=== PATIENT | female | born 1980 | race Caucasian/White ===

== ENCOUNTER 2021-08-08 13:31 | Outpatient (REF) | payer OTHER, SELFPAY ==
[2021-08-08 15:29] LABS: COVID-19 Test Negative (Negative)
== END 2021-08-08 13:32 | disposition home or self-care (01) ==
LOC: HO.LAB 13:31
PROVIDERS: Visit Provider Internal Medicine
DX: Z20.822 Contact with and (suspected) exposure to COVID-19 (principal)
CPT/HCPCS: 36415; 87635; C9803

== ENCOUNTER 2022-02-25 10:04 | Outpatient (REF) | payer OTHER, SELFPAY ==
--- NOTE | ~2022-02-25 | XR_ITS ---
EXAMINATION: XR KNEE, LEFT CLINICAL INFORMATION: Left knee contusion. COMPARISON: None. TECHNIQUE: 3 views of the left knee. FINDINGS: Moderate lateral compartment joint space narrowing with marginal osteophytes. No osseous erosion. No fracture or dislocation. Trace joint effusion. XR/XR knee LT 3V IMPRESSION: Moderate lateral compartment osteoarthritis and trace joint effusion.
== END 2022-02-25 10:05 | disposition home or self-care (01) ==
LOC: HO.XRAY 10:04
PROVIDERS: PCP Internal Medicine; Visit Provider Student in an Organized Health Care Education/Training Program
DX: S80.02XA Contusion of left knee, initial encounter (principal)
CPT/HCPCS: 73562

== ENCOUNTER 2025-05-29 18:41 | Emergency (ER) | payer OTHER, SELFPAY ==
--- NOTE | ~2025-05-29 | XR_ITS ---
CLINICAL HISTORY: injury right foot 5th toe 3 view right foot Comparison: None provided Findings: Obliquely oriented fracture along the distal shaft/neck of the 5th proximal phalanx with medial angulation. Regional soft tissue swelling. No significant arthritic change or erosions. No radiopaque foreign body. IMPRESSION: 5th proximal phalangeal fracture. This document has been electronically signed by: Joshua Long MD on 05/29/2025 19:22:19
--- NOTE | ~2025-05-29 | XR_ITS ---
CLINICAL HISTORY: post reduction of fx 3 view right foot Comparison: CR - XR FOOT RT 2V - 05/29/25 18:59 EDT Findings: Study performed at 2148 hours. Postreduction radiographs were obtained. There is a splint over the plantar aspect of the 5th toe. Previously identified fracture of the proximal phalanx of the 5th toe is again seen. Alignment is improved with decreased impaction, decreased lateral displacement, decreased lateral angulation of the distal fracture fragment. IMPRESSION: Postreduction radiographs as above. This document has been electronically signed by: Bravo Dodd MD on 05/29/2025 22:06:30
[2025-05-29 18:43] VITALS: BP 192/98; PULSE 86; RESP 15; TEMP 36.4; O2SAT 96; BMI 26.1
--- NOTE | 2025-05-29 18:43 | ED.LOWEXIN ---
HPI - Extremity Injury (Lower) General Chief Complaint: Extremity Injury, Lower Stated Complaint: right toe inj Time Seen by Provider: 05/29/25 20:02 Source: patient Limitations: no limitations History of Present Illness ED Provider: Karen Otero PA-C HPI Narrative: 44-year-old female with a history of hypertension presents with right foot pain. Patient states she stubbed her 5th right toe earlier today, it is now deformed. Associated subtle swelling and ecchymosis. Related Data Allergies Allergy/AdvReac Type Severity Reaction Status Date / Time No Known Allergies (No Known Allergy Verified 05/29/25 18:45 Allergies*) Review of Systems Review of Systems: Yes all other systems are reviewed and are negative Constitutional: Constitutional: Denies fatigue and Denies fever(s) Musculoskeletal: Musculoskeletal: Reports arthralgias and Reports joint swelling Endocrine: Endocrine: Denies fatigue PMFSH Past Medical History Attestation statement: The following information was validated with the patient. Social History Social History Smoked in Last 30 Days: No Use of substances other than those prescribed or required for medical reasons: No Advance Directives: No Advance Directives Information Provided: Yes Do you have a plan to hurt others: No Plan Physical Exam Vital Signs: Vital Signs: Last Vital Signs Temp 97.6 F 05/29/25 18:43 Pulse 86 05/29/25 18:43 Resp 15 05/29/25 18:43 BP 192/98 H 05/29/25 18:43 Pulse Ox 96 05/29/25 18:43 O2 Del Method Room Air 05/29/25 18:43 BMI result Body Mass Index 26.1 Const: Other: Alert well-appearing Orientation/consciousness: patient oriented x3 Resp: Effort & Inspection: normal respiratory effort Cardio: Other: Normal peripheral perfusion Skin: Other: Warm dry no rash Neuro: General: patient oriented x3, gait normal, no focal motor deficits and CN's II-XI intact bilaterally Extrem: Other: The right 5th digit is deviated laterally subtle swelling overlying ecchymosis over the dorsum of the right foot sensation intact Psych: Other: Cooperative Course Course Course Narrative: Shivani Rodriguezlouis [employer]MENT [employer]IC 05/29 391 This is a rapid medical exam. Deferred additional HPI, ROS, PE to primary provider. 44 yo female with history of HTN here with right foot 5th toe pain after hitting it on the garbage can. Will obtain x-rays VSS Medical Decision Making Medical Decision Making MDM Narrative: 44-year-old female with a history of hypertension presents with right foot pain. Patient states she stubbed her 5th right toe earlier today, it is now deformed. Associated subtle swelling and ecchymosis. No relevant chronic issues History: Per patient I have considered the following differential diagnoses: Fracture, dislocation, contusion, sprain Plan: X-ray ordered from triage, the patient has a fracture that requires reduction. We will give hematoma block, apply traction reduce, she will be placed in a boot with crutches, we will give her follow up with Podiatry and ortho. She states she is not in any significant discomfort, she declines analgesia. I have independently reviewed the following tests: X-ray right foot: Findings: Obliquely oriented fracture along the distal shaft/neck of the 5th proximal phalanx with medial angulation. Regional soft tissue swelling. No significant arthritic change or erosions. No radiopaque foreign body. IMPRESSION: 5th proximal phalangeal fracture. Postreduction film: Differential Diagnosis Differential Diagnoses: The differential diagnosis associated with the presentation includes See medical decision-making Admission/Observation Consideration of admission/observation: Escalation of care including admission/observation considered Not applicable Radiology Impression Discussion of test interpretation with radiology: I have reviewed the radiologist's reading. Procedures Orthopedic Fracture Reduction Fracture #1: Time Out Performed: No Side: right Fracture Reduction Location: toe Analgesia: hematoma block Technique: traction/counter-traction Post Reduction X-rays Demonstrate: acceptable reduction Post-reduction neuro exam: intact Post-reduction vascular exam: intact Splint Applied: Yes Patient Tolerated Procedure: well Discharge Plan Discharge Clinical Impression: Closed fracture of fifth toe of right foot Patient Disposition: Home, Self-Care Instructions: Foot Fracture in Adults (ED), P.R.I.C.E. Treatment (ED), Closed Reduction Internal Fixation of Leg Fracture in Adults (DC), Walking Boot (ED) Additional Instructions: You sustained a fracture of the right 5th toe. See home care instructions. I have provided you with a contact for the orthopedic service and for Podiatry, you should contact both services, follow up with whomever you can see the soonest. You can use yqim-luk-czrzoqv ibuprofen 600 mg taken every 6 hours with food, alternated with qovt-wac-wsjhetj Tylenol 1000 mg taken every 8 hours, for your pain. Referrals: Jyoti Ferguson DPM [Physician, Podiatry] Referral Note: R. 5th proximal phalange fracture Chucho Gordillo MD [Physician, Orthopedics] Referral Note: R. proximal phalange fracture Stand Alone Forms: Work/School Release Print Language: Nepali
--- OUTSIDE RECORDS SUMMARY | 2025-05-29 19:53 | XMS_ITS | Clinical Summary ---
Author Organization [facility] Address [address] [place] [address] Care Team Providers Care Neurology Stroke Physician Name Role Phone Yoel Schreiber Primary Care Provider [phone] Allergies No known active allergies Medications Lisinopril (PRINIVIL,ZESTR IL) 40 MG tablet TAKE 1 TABLET BY MOUTH DAILY EVERY DAY 02/23/2022 Active Omeprazole (PriLOSEC) [address] capsule Take by mouth 1 (one) time each day 04/13/2022 Active Sertraline HCl (ZOLOFT) 25 MG tablet Take 25 mg by mouth 1 (one) time each day in the morning 04/13/2022 Active predniSONE (DELTASONE) 2.5 MG tablet TAKE 2 TABLETS BY MOUTH IN THE MORNING + TAKE 1 TABLET IN THE EVENING 02/23/2022 Active Eplerenone (INSPRA) 50 MG tablet Take 50 mg by mouth 1 (one) time each day 02/23/2022 Active Active Problems Problem Noted Date Diagnosed Date Gastroesophageal reflux disease without esophagi tis 05/02/2022 Disorder of adrenal gland ([facility]) 05/02/2022 Essential hypertension 05/02/2022 Postartificial menopausal syndrome 05/02/2022 Social History Tobacco Use Types Packs/Day Years Used Date Smoking Tobacco: Never Assessed Comments Unknown Sex and Gender Information Value Date Recorded Sex Assigned at Not on file Legal Sex Female 11:07 AM EDT Gender Identity Not on file Sexual Orientation Not on file Last Filed Vital Signs Vital Sign Reading Time Taken Comments Blood Pressure 109/67 05/02/2022 11:12 AM EDT Pulse 74 05/02/2022 11:12 AM EDT Temperature 36.4 C (97.6 F) 05/02/2022 11:12 AM EDT Respiratory Rate - - Oxygen Saturation 98% 05/02/2022 11:12 AM EDT Inhaled Oxygen Concentration - - Weight - - Height - - Body Mass Index - - Plan of Treatment Health Maintenance Due Date Last Done Comments Hepatitis C Screening 1980 Pap Smear 1996 DTaP/Tdap/Td (1 - Tdap) 1998 Hep B (1 of 3 - 19+ 3-dose series) 1999 Mammogram/Breast Imaging 2020 COVID-19 Vaccine ( - 2023-2 5 season) 2025 Influenza (#1) 2025 Zoster (Shingrix) (1 of 2) 2030 HPV Vaccine (No Doses Required) Completed Hep A Aged Out No longer eligi ble based on patient's age to complete this topic Hib Aged Out No longer eligi ble based on patient's age to complete this topic Meningococcal ACWY Aged Out No longer eligible based on patient's age to complete this topic Pneumococcal Aged Out No longer eligi ble based on patient's age to complete this topic Care Teams Neurology Stroke Physician Relationship Specialty Start Date End Date Yoel Schreiber [address] [place] [id number] PCP - General Internal Medicine 05/02/22
--- OUTSIDE RECORDS SUMMARY | 2025-05-29 19:54 | XMS_ITS | Patient Health Record ---
Author Organization [facility] Address [address] [address] Care Team Providers Care Financial Aids Officer Name Role Phone Abdoul SORIA, Yoel Primary Care Provider Malinda Garcia [phone] Reason For Referral No Information Medications Medication SIG (Take, Route, Frequency, Duration) Notes Start Date End Date Status predniSONE 25MG 1 ORAL twice daily; Duration: -3 [facility]- 12/21/2012 Active Omeprazole 20MG 1 ORAL daily; Durati on: -3 [facility]- 12/21/2012 Active Lisinopril 40MG 1 ORAL daily; Durati on: -3 [facility]- 12/21/2012 Active hydroCHLOROthiazide 12.5MG 1 ORAL daily; Duration: -3 [facility]- 12/21/2012 Active Ronda 0.1 MG/24HR 1 patch to skin Transdermal twice weekly; Duration: 365 days 07/04/2015 Active Verapamil HCl 100MG 1 ORAL daily; Durati on: -3 [facility]- 12/21/2012 Active Problems Problem Type SNOMED Code ICD Code Onset Dates Problem Status W/U Status Risk Notes Problem Disorder of adrenal gland (99616013) Other specified disorders of adrenal glands (255.8) Active confirmed Major Problem Essential hypertension (02847096) Unspecified essential hypertension (401.9) Active confirmed Major Problem Esophageal reflux (067845002) Esophageal reflux (530.81) Active confirmed Major Problem Postartificial menopausal syndrome (09331863) Symptomatic states associated with artificial menopause (627.4) Active confirmed Plan Of Treatment Pending Test Test Name Order Date Bone Density 03/06/2015 Insurance Providers Payer Name Payer Address Payer Phone Subscriber Number Group Number Insured Name Patient Relationship to Insured Coverage Start Date Coverage End Date [employer] [address] [place] [address] [id number] KATHARINE PYLE Self - patient is the insured Medical (General) History Medical History History ICD Code Other specified disorders of adrenal glands (Congenital adrenal hyperplasia per PCP records) Esophageal reflux Unspecified essential hypertension Symptomatic states associated with artif icial menopause Essential hypertension, benign Surgical History Surgery Date(Month/Year) LAV BSO for ?muellerian duct abnormalit y age 16 L tympanic membrane repair
--- OUTSIDE RECORDS SUMMARY | 2025-05-29 19:54 | XMS_ITS | Clinical Summary ---
Author Organization [facility] Address [address] [address] Phone Care Team Providers Care Head Porter Name Role Phone Unknown, Unknown MD Primary Care Provider Unavai lable Allergies No known active allergies Medications predniSONE (DELTASONE) 2.5 MG tablet TAKE 2 TABLETS BY MOUTH IN THE MORNING AND 1 TABLET BY MOUTH IN THE EVENING 01/17/2021 Active lisinopril (PRINIVIL,ZESTR IL) 40 MG tablet 03/01/2021 Active verapamiL (VERELAN PM) 100 mg 24 hr capsule 03/01/2021 Active omeprazole (PRILOSEC) 20 MG tablet Take 20 mg by mouth daily. Active eplerenone (INSPRA) 50 MG tablet Take 50 mg by mouth daily. Active Immunizations No known immunizations Social History Tobacco Use Types Packs/Day Years Used Date Smoking Tobacco: Every Day Cigarettes Smokeless Tobacco: Never Alcohol Use Standard Drinks/Week Comments Not Currently 0 (1 standard drink = 0.6 oz pur e alcohol) Education Answer Date Recorded Are you interested in more education? Not on oseas e 12/28/2022 Are you concerned about learning? Not on file 12/28/2022 No 12/28/2022 No 12/28/2022 Digital Access Answer Date Recorded No 01/26/2023 No 01/26/2023 No 01/26/2023 Reliable internet access at home? Not on file 01/26/2023 Device with a working camera? Not on file Comments Unknown Sex and Gender Information Value Date Recorded Sex Assigned at Not on file Legal Sex Female 2:05 PM EDT Gender Identity Not on file Sexual Orientation Not on file Last Filed Vital Signs Vital Sign Reading Time Taken Comments Blood Pressure 122/77 03/02/2021 2:24 PM EDT Pulse 70 03/02/2021 2:24 PM EDT Temperature 36.6 C (97.9 F) 03/02/2021 2:24 PM EDT Respiratory Rate 16 03/02/2021 2:24 PM EDT Oxygen Saturation 97% 03/02/2021 2:24 PM EDT Inhaled Oxygen Concentration - - Weight 89.5 kg (197 lb 6.4 oz) 03/02/2021 2:24 P M EDT Height 181.7 cm (5' 11.54 ) 03/02/2021 2:24 PM E DT Body Mass Index 27.12 03/02/2021 2:24 PM EDT Plan of Treatment Health Maintenance Due Date Last Done Comments Adult Td,Tdap Booster 1980 CREATININE LEVEL 1980 POTASSIUM LEVEL 1980 DEPRESSION SCREENING 1992 SMOKING Hx and SMOKELESS TOB ACCO SCREENING 1993 HEPATITIS C SCREENING 1998 HIV ONE-TIME SCREENING (18-6 5 YEARS) 1998 PNEUMOCOCCAL VACCINES (0-49 years) (1 of 2 - PCV) 1999 PAP SMEAR 2001 MAMMOGRAM 2020 INFLUENZA VACCINE (#1) 2025 COVID-19 VACCINE ( - 2023-2 5 season) 2025 HEPATITIS A VACCINES Aged Out No long er eligible based on patient's age to complete this topic HIB VACCINES Aged Out No longer eligi ble based on patient's age to complete this topic MENINGOCOCCAL VACCINES (ACWY) Aged Out No longer eligible based on patient's age to complete this topic MENINGOCOCCAL VACCINES (B) Aged Out N o longer eligible based on patient's age to complete this topic Medical Devices Not on file Insurance [facility] [employer] [facility] DIRECT PLANS DIRECT PLANS DIRECT PLANS DIRECT PLANS DIRECT PLANS DIRECT PLANS DIRECT [facility] [employer] [facility] DIRECT [employer] [facility] DIRECT Care Teams Head Porter Relationship Specialty Start Date End Date Unknown, Unknown, PCP - General 03/02/21 Additional Source Comments The information contained in this document represents components of the legal health record. It is not the complete legal health record.[facility]
[2025-05-29 22:37] VITALS: BP 162/86; PULSE 82; RESP 16; TEMP 36.4; O2SAT 97
== END 2025-05-29 22:38 | disposition home or self-care (01) ==
PROVIDERS: Emergency Provider Emergency Medicine Emergency Medical Services; PCP Internal Medicine
DX: S92.911A Unspecified fracture of right toe(s), initial encounter for closed fracture (principal); M79.671 Pain in right foot; I10 Essential (primary) hypertension; M79.89 Other specified soft tissue disorders; X58.XXXA Exposure to other specified factors, initial encounter; Y93.9 Activity, unspecified; Y92.9 Unspecified place or not applicable; Y99.9 Unspecified external cause status
CPT/HCPCS: 28515; 73630; 99283; 99284

== ENCOUNTER → 2025-05-29 18:44 | Outpatient (BNV) | payer OTHER, SELFPAY | PROVIDERS: PCP Internal Medicine; Visit Provider Radiology Diagnostic Radiology | DX: S92.511D Displaced fracture of proximal phalanx of right lesser toe(s), subsequent encounter for fracture with routine healing (principal); S92.511A Displaced fracture of proximal phalanx of right lesser toe(s), initial encounter for closed fracture | CPT/HCPCS: 73630 ==

== ENCOUNTER 2025-06-01 13:08 | Outpatient (AMB) | payer OTHER, SELFPAY ==
[2025-06-01 13:20] VITALS: BMI 23.7
--- NOTE | 2025-06-01 13:20 | A.OFFVIS_ITS ---
Vital Signs 06/01/25 13:20 Height 6 ft Weight 175 lb BMI 23.7 Intake Visit Reasons: broken rit foot toe Intake Note: Mariama is a 44 year old female who presents today as a new patient for an evaluation of her 5th toe fracture on her right foot. Patient was seen on 05/29/25at the ED where she was provided with a walking boot and crutches. She states the injury occurred after stubbing her toe in her kitchen. Patient reports she takes OTC ibuprofen as needed for her pain. Allergies No Known Allergies (No Known Allergies*) Allergy (Verified 06/01/25 13:21) HPI Comments Details: The patient is a 44-year-old female with a past medical history as seen below presenting with a right 5th toe dislocation and fracture, post reduction and splinting in the ED. The injury was sustained after she accidentally kicked a trash can in her kitchen on Friday. Since the time of injury/postreduction, she has been wearing a boot and using crutches and reports that it has helped minimize her pain. She experiences occasional numbness and tingling, reminiscent of pins and needles, primarily when the foot is elevated. Utilizing crutches has also alleviated her discomfort, and her pain is being managed adequately with jmfx-tyc-tnvzsvw medications such as Tylenol and ibuprofen. She demonstrates compliance in using the boot and crutches as instructed. She states she experiences intermittent pain to the right 5th toe upon pressure or movement to the toe and is alleviated upon rest. The patient is also on prescribed vitamin D supplementation due to previously recorded low levels, supporting optimal bone healing. She denies any new pedal injuries. She denies any other pedal concerns. She denies any current nausea, vomiting, fever, or chills. Patient was accompanied by her mother. [facility] Medical History (Updated 06/01/25 @ 14:19 by Tawny Wright DPM) Right foot pain Dislocation of fifth toe, right, closed Review of Systems Const Details: - Musculoskeletal: Reports mild pain in the toe, occasional numbness, and tingling when elevated. - Neurological: Denies constant numbness or tingling. All systems reviewed & are unremarkable except as noted in HPI and below Physical Exam Vital Signs: BMI result Body Mass Index 23.7 Extrem Other: Right lower extremity focused physical exam: Derm: No open lesions abrasions or wounds noted. No maceration noted no ecchymosis or discoloration noted. Mild edema noted to the lateral aspect of the right foot along the area of the 5th toe. No clinical signs of infection. Vascular: DP/PT pulses palpable. Capillary refill time less than 3 seconds. Temperature gradient warm to warm. No varicosities noted. Pedal hair present. Neuro: Protective sensation is grossly intact. MSK: Pain on palpation to the 5th toe. Limited range of motion of the 5th toe due to guarding from pain. Range of motion of the remaining forefoot within normal limits. Range of motion of the hindfoot and ankle within normal limits. No crepitus noted. No fluctuance noted. Antalgic gait noted. Patient is currently utilizing crutches. Office Procedures [facility] Podiatry Dressing Details of Procedure: Applied a jhoan splint and Tristen bandage to the right foot to the secure the 5th toe. 29[address] Strapping of foot/toe Procedure code (CPT) selection complete Results Reviewed Results Reviewed: Ordered Right foot three views weight-bearing x-rays to be performed prior to next visit. Podiatry read of Right foot x-rays (05/29/2025): Postreduction image noted with spiral fracture of the shaft of the proximal phalanx nondisplaced. Good alignm ent noted post reduction. Right foot x-rays (05/29/2025): Findings: Study performed at 2148 hours. Postreduction radiographs were obtained. There is a splint over the plantar aspect of the 5th toe. Previously identified fracture of the proximal phalanx of the 5th toe is again seen. Alignment is improved with decreased impaction, decreased lateral displacement, decreased lateral angulation of the distal fracture fragment. IMPRESSION: Postreduction radiographs as above. Assessment & Plan Assessment & Plan (1) Closed fracture of fifth toe of right foot: Code(s): S92.501A - Displaced unspecified fracture of right lesser toe(s), initial encounter for closed fracture Category: Medical Qualifiers: Encounter type: initial encounter Qualified Code(s): S92.501A - Displaced unspecified fracture of right lesser toe(s), initial encounter for closed fracture (2) Dislocation of fifth toe, right, closed: Code(s): S93.104A - Unspecified dislocation of right toe(s), initial encounter Category: Medical Qualifiers: Encounter type: initial encounter Qualified Code(s): S93.104A - Unspecified dislocation of right toe(s), initial encounter (3) Right foot pain: Code(s): M79.671 - Pain in right foot Category: Medical Plan Patient was informed and verbally consented to the use of an ambient scribe for clinic note documentation during this visit. I discussed with the patient the nature and specifics of her toe injury, including the dislocation and fracture, and the anticipated healing process. We reviewed the X-ray findings together, which confirm no joint involvement of the fracture postreduction, indicating a favorable healing prognosis without the need for surgical intervention. I emphasized the importance of continuing the use of the boot and crutches, being partially weight-bearing to the right heel, discussed plans for a gradual transition to normal footwear, and the incorporation of physical therapy. Furthermore, we reviewed the role of vitamin D in bone health and the necessity to manage swelling with regular application of ice. - The patient is advised to continue using crutches and the CAM boot for support and to safeguard the toe during the healing process. - Patient may be partial weight-bearing to the right heel with the use of crutches. - A follow-up appointment is scheduled in two weeks, at which time repeat X-rays should be performed prior to appointment to evaluate the healing progression of the toe. - The plan includes transitioning to walking in the boot without crutches as pain decreases. Progression to a sneaker will be followed by the initiation of physical therapy. - Continuation of vitamin D supplementation is recommended to aid in bone healing. - Weightbearing activities are to remain limited, and the application of ice is advised to manage swelling, particularly after work. - Provided patient with a note for work to allow accomodations. Patient is to return to the office in 2 weeks for re-evaluation. Orders: Orders [facility] Podiatry Dressing Today M79.671 - Pain in right foot, S92.501A - Displaced unspecified fracture of right lesser toe(s), initial encounter for closed fracture, S93.104A - Unspecified dislocation of right toe(s), initial encounter XR foot RT min 3V Today M79.671 - Pain in right foot, S92.501A - Displaced unspecified fracture of right lesser toe(s), initial encounter for closed fracture, S93.104A - Unspecified dislocation of right toe(s), initial encounter Coding Level of Care Code New Pt Level 4 (29840) Diagnoses Closed fracture of phalanx of right fifth toe, initial encounter S92.501A Encounter type: initial encounter Closed dislocation of fifth toe of right foot, initial encounter S93.104A Encounter type: initial encounter Right foot pain M79.671 CPT Codes Podiatry Dressing - CPT: 88576 Strapping of foot/toe ([id number]) Time Spent (min) 60
--- OUTSIDE RECORDS SUMMARY | 2025-06-01 14:24 | XMS_ITS | Clinical Summary ---
Author Organization [facility] Address [address] [address] Phone Care Team Providers Care Medical Driver Name Role Phone Unknown, Unknown MD Primary [...] topic Medical Devices Not on file Insurance [facility] [employer] [facility] DIRECT PLANS DIRECT PLANS DIRECT PLANS DIRECT PLANS DIRECT PLANS DIRECT PLANS DIRECT [facility] [employer] [facility] DIRECT [employer] [facility] DIRECT Care Teams Medical Driver Relationship Specialty Start Date End Date Unknown, Unknown, PCP - General 03/02/21 Additional Source Comments The information contained in this document represents components of the legal health record. It is not the complete legal health record.[facility]
--- OUTSIDE RECORDS SUMMARY | 2025-06-01 14:24 | XMS_ITS | Patient Health Record ---
Author Organization [facility] Address [address] [address] Care Team Providers Care Hide Selector Name Role Phone Abdoul SORIA, Yoel Primary Care Provider Malinda Garcia [phone] Reason For Referral No Information Medications Medication SIG (Take, Route, Frequency, Duration) Notes Start Date End Date Status predniSONE 25MG 1 ORAL twice daily; Duration: -3 [facility] 12/21/2012 Active Omeprazole 20MG 1 ORAL daily; Durati on: -3 [facility] 12/21/2012 Active Lisinopril 40MG 1 ORAL daily; Durati on: -3 [facility] 12/21/2012 Active hydroCHLOROthiazide 12.5MG 1 ORAL daily; Duration: -3 [facility] 12/21/2012 Active Ronda 0.1 MG/24HR 1 patch to skin Transdermal twice weekly; Duration: 365 days 07/04/2015 Active Verapamil HCl 100MG 1 ORAL daily; Durati on: -3 [facility] 12/21/2012 Active Problems Problem Type SNOMED Code ICD Code Onset Dates Problem Status W/U Status Risk Notes Problem Disorder of adrenal gland (79024488) Other specified disorders of adrenal glands (255.8) Active confirmed Major Problem Essential hypertension (26645902) Unspecified essential hypertension (401.9) Active confirmed Major Problem Esophageal reflux (192546244) Esophageal reflux (530.81) Active confirmed Major Problem 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
--- OUTSIDE RECORDS SUMMARY | 2025-06-01 14:24 | XMS_ITS | Clinical Summary ---
Author Organization [facility] [place] [address] Care Team Providers Care Batch Freezer Operator Name Role Phone Unavailable Primary Care Provider Unavailabl e Social History Tobacco Use Types Packs/Day Years Used Date Smoking Tobacco: Never Assessed Comments Unknown Sex and Gender Information Value Date Recorded Sex Assigned at Not on file Legal Sex Female 1:18 PM EST Gender Identity Not on file Sexual Orientation Not on file Plan of Treatment Health Maintenance Due Date Last Done Comments DTaP,Tdap,and Td Vaccines (1 - Tdap) 1999 Hepatitis B Vaccines (1 of 3 - 19+ 3-dose series) 1999 Cervical Cancer Screening: P ap Smear 2001 HPV Vaccines (1 - 3-dose SCD M series) 2007 HIV Screening 07/30/2022 Hepatitis C Screening 07/30/2022 Social Influencers of Health Screening 07/30/2022 Depression Screening 09/01/2024 COVID-19 Vaccine ( - 2023-2 5 season) 2025 Influenza Vaccine (#1) 2025 Breast Cancer Screening 06/07/2026 06/07/20 24, 05/21/2023 RSV Immunization Adult Patients (1 - 1-dose 75+ series) 2055 HIB Vaccines Aged Out No longer eligi ble based on patient's age to complete this topic Hepatitis A Vaccines Aged Out No long er eligible based on patient's age to complete this topic IPV Vaccines Aged Out No longer eligi ble based on patient's age to complete this topic MMR Vaccines Aged Out No longer eligi ble based on patient's age to complete this topic Meningococcal ACWY Vaccine Aged Out N o longer eligible based on patient's age to complete this topic Meningococcal B Vaccine Aged Out No l onger eligible based on patient's age to complete this topic Pneumococcal Vaccine: Pediatrics (0 to 5 Years) and At-Risk Patients (6 to 49 Years) Aged Out No longer eligible b ased on patient's age to complete this topic RSV Immunization Patients Under 20 months Aged Out No longer eligible b ased on patient's age to complete this topic Varicella Vaccines Aged Out No longer eligible based on patient's age to complete this topic Procedures Procedure Name Priority Date/Time Associated Diagnosis Comments [facility] SCREENING DIGITAL Routine 06/07/2024 8:27 AM EDT Encounter for screening mammogram for malignant neoplasm of breast from Last 3 Months or Most Recently Relevant to Health Maintenance Results * [facility] SCREENING DIGITAL (06/07/2024 8:27 AM EDT) Anatomical Region Laterality Modality Mammography 06/03/2024 10:2 1 AM EDT Narrative 06/07/2024 8:27 AM EDT [facility] Diagnostic Imaging Department [address] [place] [address] Patient: MARIAMA PEREZ Tank /Age/Sex: 1980 43 - F Unit#: [id number] Location/Status: SPDIMAM/REG CLI Mnemonic/Ordering Site: [facility] Ordering Physician: YOEL SCHREIBER MD [facility] Screening Digital - 06/05/24908 Report Status:Signed EXAM: [facility] Screening Digital EXAM DATE AND TIME: 06/05/2024 9:10 AM HISTORY: Screening. Patient missed a short-term follow-up exam recommended on 05/27/23 for a small focal asymmetry in the right breast. COMPARISON: 05/27/23, 05/21/23 TECHNIQUE: Bilateral digital breast tomosynthesis was performed in the CC and MLO projections. Computer aided detection with [employer] 3D 3.1 was employed. TISSUE DENSITY: b. There are scattered areas of fibroglandular density. FINDINGS: No suspicious masses, grouped microcalcifications, or areas of architectural distortion are seen. The small focal asymmetry described previously in the inferomedial right breast, middle depth, is unchanged and appears to represent benign fibroglandular tissue. Skin calcifications are noted. The vascularity is unremarkable. IMPRESSION: Stable mammographic appearance of the breasts. No evidence of malignancy is seen. A negative mammogram in the presence of a clinically suspicious palpable abnormality does not preclude the possibility of malignancy or alter the indications for biopsy. BI-RADS: Category 2: Benign RECOMMENDATION(S): 1: Routine screening mammogram BILATERAL in 1 year. Mammogram performed at [facility] [place] [address] Dictating Physician: LEANDRA GERBER MD Electronically Signed by: LEANDRA GERBER MD Dic Date/Time: 06/07/24823 Sign date/Time: 06/07/24826 Procedure Note Leandra Gerber MD - 06/29/2024 [facility] Diagnostic Imaging Department [address] [place] [address] Patient: MARIAMA PEREZ Tank /Age/Sex: 1980 - 43 - F Unit#: [id number] Location/Status: SPDIMAM/REG CLI Mnemonic[facility] Ordering Physician: YOEL SCHREIBER MD [facility] Screening Digital - 06/05/24908 Report Status:Signed EXAM: [facility] Screening Digital EXAM DATE AND TIME: 06/05/2024 9:10 AM HISTORY: Screening. Patient missed a short-term follow-up examrecommended on 05/27/23 for a small focal asymmetry in the right breast. COMPARISON: 05/27/23, 05/21/23 TECHNIQUE: Bilateral digital breast tomosynthesis was performed in the CCand MLO projections. Computer aided detection with Dev[employer] 3D 3.1was employed. TISSUE DENSITY: b. There are scattered areas of fibroglandular density. FINDINGS: No suspicious masses, grouped microcalcifications, or areas ofarchitectural distortion are seen. The small focal asymmetry described previously inthe inferomedial right breast, middle depth, is unchanged and appears torepresent benign fibroglandular tissue. Skin calcifications are noted. The vascularity is unremarkable. IMPRESSION: Stable mammographic appearance of the breasts. No evidence of malignancyis seen. A negative mammogram in the presence of a clinically suspicious palpable abnormality does not preclude the possibility of malignancy or alter the indications for biopsy. BI-RADS: Category 2: Benign RECOMMENDATION(S): 1: Routine screening mammogram BILATERAL in 1 year. Mammogram performed at [facility] [place] [address] Dictating Physician: LEANDRA GERBER MD Electronically Signed by: LEANDRA GERBER MD Dic Date/Time: 06/07/24823 Sign date/Time: 06/07/24826 us Yoel Schreiber MD IMG BI PROCEDURES Final Result from Last 3 Months or Most Recently Relevant to Health Maintenance
--- OUTSIDE RECORDS SUMMARY | 2025-06-01 14:24 | XMS_ITS | Clinical Summary ---
Author Organization [facility] Address [address] [place] [address] Care Team Providers Care Trolley Car Mechanic Name Role Phone Yoel Schreiber Primary Care Provider [phone] Allergies No known active allergies Medications Lisinopril [...] age to complete this topic Care Teams Trolley Car Mechanic Relationship Specialty Start Date End Date Yoel Schreiber [address] [place] [id number] PCP - General Internal Medicine 05/02/22
== END 2025-06-01 13:22 | disposition home or self-care (01) ==
LOC: HO.HPODS 13:09
PROVIDERS: PCP Internal Medicine; Visit Provider Student in an Organized Health Care Education/Training Program
DX: S92.501A Displaced unspecified fracture of right lesser toe(s), initial encounter for closed fracture (principal); S93.104A Unspecified dislocation of right toe(s), initial encounter; M79.671 Pain in right foot
CPT/HCPCS: 29550; 99203

== ENCOUNTER → 2025-06-01 13:08 | Outpatient (BNVA) | payer OTHER, SELFPAY | PROVIDERS: PCP Internal Medicine; Visit Provider Student in an Organized Health Care Education/Training Program | DX: S92.501A Displaced unspecified fracture of right lesser toe(s), initial encounter for closed fracture (principal); S93.104A Unspecified dislocation of right toe(s), initial encounter; M79.671 Pain in right foot; W22.09XA Striking against other stationary object, initial encounter; Y93.9 Activity, unspecified; Y92.9 Unspecified place or not applicable; Y99.9 Unspecified external cause status | CPT/HCPCS: 29550 ==

== ENCOUNTER 2025-06-13 12:39 | Outpatient (REF) | payer OTHER, SELFPAY ==
--- NOTE | ~2025-06-13 | XR_ITS ---
CLINICAL HISTORY: S93.104A - Unspecified dislocation of right toe(s), initial encounter --- Additional Notes or Special Instructions: Weightbearing please 3 view right foot Comparison: CR - XR FOOT RT MIN 3V - 05/29/25 21:48 EDT Findings: Healing mildly displaced fracture of the proximal 5th phalanx. No ankle effusion. No radiopaque foreign body. IMPRESSION: Healing mildly displaced fracture of the proximal 5th phalanx. This document has been electronically signed by: Kan Coulter MD, PHD on 06/16/2025 03:27:04
--- OUTSIDE RECORDS SUMMARY | 2025-06-13 12:43 | XMS_ITS | Patient Health Record ---
Author Organization [facility] Address [address] [address] Care Team Providers Care Opener Verifier Packer Customs Name Role Phone Abdoul SORIA, Yoel Primary Care Provider Malinda Garcia [phone] Reason For Referral No Information Medications Medication SIG (Take, Route, Frequency, Duration) Notes Start Date End Date Status predniSONE 25MG 1 ORAL twice daily; Duration: -3 [facility] 12/21/2012 Active Omeprazole 20MG 1 ORAL daily; Durati on: -3 [facility] 12/21/2012 Active Lisinopril 40MG 1 ORAL daily; Durati on: -3 [facility] 12/21/2012 Active hydroCHLOROthiazide 12.5MG 1 ORAL daily; Duration: -3 [facility] 12/21/2012 Active Ronda 0.1 MG/24HR 1 patch to skin Transdermal twice weekly; Duration: 365 days 07/04/2015 Active Verapamil HCl 100MG 1 ORAL daily; Durati on: -3 [facility] 12/21/2012 Active Problems Problem Type SNOMED Code ICD Code Onset Dates Problem Status W/U Status Risk Notes Problem Disorder of adrenal gland (74348087) Other specified disorders of adrenal glands (255.8) Active confirmed Major Problem Essential hypertension (47089460) Unspecified essential hypertension (401.9) Active confirmed Major Problem Esophageal reflux (286675799) Esophageal reflux (530.81) Active confirmed Major Problem Postartificial menopausal syndrome (41806551) Symptomatic states associated with artificial menopause (627.4) Active confirmed Plan Of Treatment Pending Test Test Name Order Date Bone Density 03/06/2015 Insurance Providers Payer Name Payer Address Payer Phone Subscriber Number Group Number Insured Name Patient Relationship to Insured Coverage Start Date Coverage End Date [employer] [address] [place] [address] [phone] [id number] KATHARINE PYLE Self - patient is the [...]
--- OUTSIDE RECORDS SUMMARY | 2025-06-13 12:43 | XMS_ITS | Clinical Summary ---
Author Organization [facility] [place] [address] Care Team Providers Care Laborer Car Barn Name Role Phone Unavailable Primary Care Provider [...] Procedure Name Priority Date/Time Associated Diagnosis Comments [facility] SCREENING DIGITAL Routine 06/07/2024 8:27 AM EDT Encounter for screening mammogram for malignant neoplasm of breast from Last 3 Months or Most Recently Relevant to Health Maintenance Results * [facility] SCREENING DIGITAL (06/07/2024 8:27 AM EDT) Anatomical Region Laterality Modality Mammography 06/03/2024 10:2 1 AM EDT Narrative 06/07/2024 8:27 AM EDT [facility] Diagnostic Imaging Department [address] [place] [address] Patient: MARIAMA PEREZ Tank /Age/Sex: 1980 43 - F Unit#: [id number] Location/Status: SPDIMAM/REG CLI Mnemonic/Ordering Site: [facility] Ordering Physician: YOEL SCHREIBER MD [facility] Screening Digital - 06/05/24908 Report Status:Signed EXAM: [facility] Screening Digital EXAM DATE AND TIME: 06/05/2024 9:10 AM HISTORY: Screening. Patient missed a short-term follow-up exam recommended on 05/27/23 for a small focal asymmetry in the right breast. COMPARISON: 05/27/23, 05/21/23 TECHNIQUE: Bilateral digital breast tomosynthesis was performed in the CC and MLO projections. Computer aided detection with [employer] 3D 3.1 was employed. TISSUE DENSITY: b. [...] Mammogram performed at [facility] [place] [address] Dictating Physician: LEANDRA GERBER MD Electronically Signed by: LEANDRA GERBER MD Dic Date/Time: 06/07/24823 Sign date/Time: 06/07/24826 Procedure Note Leandra Gerber MD - 06/29/2024 [facility] Diagnostic Imaging Department [address] [place] [address] Patient: MARIAMA PEREZ Tank /Age/Sex: 1980 - 43 - F Unit#: [id number] Location/Status: SPDIMAM/REG CLI Mnemonic/[facility]ing [facility] Ordering Physician: YOEL SCHREIBER MD [facility] Screening Digital - 06/05/24908 Report Status:Signed EXAM: [facility] Screening Digital EXAM DATE AND TIME: 06/05/2024 9:10 AM HISTORY: Screening. Patient missed a short-term follow-up examrecommended on 05/27/23 for a small focal asymmetry in the right breast. COMPARISON: 05/27/23, 05/21/23 TECHNIQUE: Bilateral digital breast tomosynthesis was performed in the CCand MLO projections. Computer aided detection with [employer] 3D 3.1was employed. TISSUE DENSITY: b. There [...] Mammogram performed at [facility] [place] [address] Dictating Physician: LEANDRA GERBER MD Electronically Signed by: LEANDRA GERBER MD Dic Date/Time: 06/07/24823 Sign date/Time: 06/07/24826 us Yoel Schreiber MD IMG BI PROCEDURES Final Result from Last 3 Months or Most Recently Relevant to Health Maintenance
--- OUTSIDE RECORDS SUMMARY | 2025-06-13 12:43 | XMS_ITS | Clinical Summary ---
Author Organization [facility] Address [address] [address] Phone Care Team Providers Care Pitch Gatherer Name Role Phone Unknown, Unknown MD Primary [...] VACCINE (#1) 2025 COVID-19 VACCINE ( - 2024-2 6 season) 2025 HEPATITIS A VACCINES Aged Out [...] topic Medical Devices Not on file Insurance [facility] [employer] [facility] DIRECT PLANS DIRECT PLANS DIRECT PLANS DIRECT PLANS DIRECT PLANS DIRECT PLANS DIRECT [facility] [employer] [facility] DIRECT [employer] [facility] DIRECT Care Teams Pitch Gatherer Relationship Specialty Start Date End Date Unknown, Unknown, PCP - General 03/02/21 Additional Source Comments The information contained in this document represents components of the legal health record. It is not the complete legal health record.[facility]
--- OUTSIDE RECORDS SUMMARY | 2025-06-13 12:43 | XMS_ITS | Clinical Summary ---
Author Organization [facility] Address [address] [place] [address] Care Team Providers Care Rn Spine Name Role Phone Yoel Schreiber Primary Care Provider Allergies No known active allergies Medications Lisinopril [...] Mammogram/Breast Imaging 2020 COVID-19 Vaccine ( - 2024-2 6 season) 2025 Influenza (#1) 2025 Zoster (Shingrix) [...] age to complete this topic Care Teams Rn Spine Relationship Specialty Start Date End Date Yoel Schreiber [address] [place] [id number] PCP - General Internal Medicine 05/02/22
== END 2025-06-13 12:40 | disposition home or self-care (01) ==
LOC: HO.XRAY 12:39
PROVIDERS: PCP Internal Medicine; Visit Provider Student in an Organized Health Care Education/Training Program
DX: M79.671 Pain in right foot (principal); S93.104A Unspecified dislocation of right toe(s), initial encounter; S92.501A Displaced unspecified fracture of right lesser toe(s), initial encounter for closed fracture
CPT/HCPCS: 73630

== ENCOUNTER → 2025-06-13 12:46 | Outpatient (BNV) | payer OTHER, SELFPAY | PROVIDERS: PCP Internal Medicine; Visit Provider General Practice | DX: S92.511A Displaced fracture of proximal phalanx of right lesser toe(s), initial encounter for closed fracture (principal) | CPT/HCPCS: 73630 ==

== ENCOUNTER 2025-06-17 08:29 | Outpatient (AMB) | payer OTHER, SELFPAY ==
[2025-06-17 08:44] VITALS: BMI 23.7
--- NOTE | 2025-06-17 08:44 | MHC.OFFVIS ---
Vital Signs 06/17/25 08:44 Height 6 ft Weight 175 lb BMI 23.7 Intake Visit Reasons: fu broken rit foot toe Intake Note: Mariama is a 44 year old female who presents today for follow up on her right pinky toe fracture. during her last visit a splint was applied and advised to continue the use of the walking boot and crutches. Patient states the past couple days she have not experienced pain and has no questions or concerns at this time Allergies No Known Allergies (No Known Allergies*) Allergy (Verified 06/01/25 13:21) HPI Comments Details: The patient is a 44-year-old female presenting for a follow up of a right 5th toe fracture. Patient was seen using the CAMboot with crutches. She states her pain has been improving. She states she experiences pain with increased pressure or palpation to the area. She reports experiencing a burning sensation and intermittent pain in the foot, which she describes as coming in waves. This pain was initially severe but has since decreased. Additionally, a blood blister was noted on the lateral aspect of the right foot, which the patient observed during her x-ray appointment. She denies any drainage, purulence, or bleeding from the blister. She continues to take her Vit D supplements. She denies any new pedal injuries. She denies any other pedal concerns. She denies any current nausea, vomiting, fever, or chills. [facility] Medical History (Updated 06/01/25 @ 14:19 by Tawny Wright DPM) Right foot pain Dislocation of fifth toe, right, closed Review of Systems Const Details: - Musculoskeletal: Reports right 5th toe fracture. All systems reviewed & are unremarkable except as noted in HPI and below Physical Exam Vital Signs: BMI result Body Mass Index 23.7 Extrem Other: Right lower extremity focused physical exam: Derm: Blood blister noted to the lateral aspect of the foot in the area of the 5th metatarsal head. No purulence, drainage, or bleeding noted. No open lesions, abrasions, or wounds noted. No maceration noted no ecchymosis or discoloration noted. Minimal edema noted to the lateral aspect of the right foot along the area of the 5th toe. No clinical signs of infection. Vascular: DP/PT pulses palpable. Capillary refill time less than 3 seconds. Temperature gradient warm to warm. No varicosities noted. Pedal hair present. Neuro: Protective sensation is grossly intact. MSK: Mild pain on palpation to the 5th toe. Limited range of motion of the 5th toe. Range of motion of the remaining forefoot within normal limits. Range of motion of the hindfoot and ankle within normal limits. No crepitus noted. No fluctuance noted. Antalgic gait noted - NWB to the RLE with the use of crutches. Office Procedures AMB Podiatry Dressing Details of Procedure: Applied a jhoan splint to the right foot to the secure the 5th toe. Patient is to continue using the CAMboot. [id number] Strapping of foot/toe Procedure code (CPT) selection complete Results Reviewed Results Reviewed: Ordered right foot weightbearing xrays to be performed prior to next visit. Podiatry read of Right foot x-rays (05/29/2025): Healing noted to the proximal phalanx 5th toe spiral fracture with increased consolidation and bone callus formation noted. No new fractures or displacements noted. Right foot x-rays (05/29/2025): Findings: Healing mildly displaced fracture of the proximal 5th phalanx. No ankle effusion. No radiopaque foreign body. IMPRESSION: Healing mildly displaced fracture of the proximal 5th phalanx. Podiatry read of Right foot x-rays (05/29/2025): Postreduction image noted with spiral fracture of the shaft of the proximal phalanx nondisplaced. Good alignment noted post reduction. Right foot x-rays (05/29/2025): Findings: Study performed at 2148 hours. Postreduction radiographs were obtained. There is a splint over the plantar aspect of the 5th toe. Previously identified fracture of the proximal phalanx of the 5th toe is again seen. Alignment is improved with decreased impaction, decreased lateral displacement, decreased lateral angulation of the distal fracture fragment. IMPRESSION: Postreduction radiographs as above. Assessment & Plan Assessment & Plan (1) Dislocation of fifth toe, right, closed: Code(s): S93.104A - Unspecified dislocation of right toe(s), initial encounter Category: Medical Qualifiers: Encounter type: initial encounter Qualified Code(s): S93.104A - Unspecified dislocation of right toe(s), initial encounter (2) Right foot pain: Code(s): M79.671 - Pain in right foot Category: Medical (3) Closed fracture of fifth toe of right foot: Code(s): S92.501A - Displaced unspecified fracture of right lesser toe(s), initial encounter for closed fracture Category: Medical Qualifiers: Encounter type: initial encounter Qualified Code(s): S92.501A - Displaced unspecified fracture of right lesser toe(s), initial encounter for closed fracture Plan Patient was informed and verbally consented to the use of an ambient scribe for clinic note documentation during this visit. I discussed with the patient the current status of her foot fracture, noting the positive healing progress observed in the x-rays. We reviewed the plan to start weight-bearing in the boot and the transition to a sneaker if healing continues as expected. I also explained the importance of physical therapy and provided instructions for managing the blood blister. - Continue using the CAMboot and transition to WBAT to the RLE. - Gradually transition out of using crutches while being WBAT in the CAMboot. - Ordered new xrays to be performed prior to next visit. - Applied a bandaid to the area of the blood blister and jhoan splinted the right 5th toe. - Continuation of vitamin D supplementation is recommended to aid in bone healing. - Will consider transition into a sneaker and start of PT if continued positive healing is noted. Patient is to return to the office in 2 weeks for re-evaluation. Orders: Orders AMB Podiatry Dressing 06/17/25 M79.671 - Pain in right foot, S92.501A - Displaced unspecified fracture of right lesser toe(s), initial encounter for closed fracture, S93.104A - Unspecified dislocation of right toe(s), initial encounter XR foot RT min 3V 10/17/25 M79.671 - Pain in right foot, S92.501A - Displaced unspecified fracture of right lesser toe(s), initial encounter for closed fracture, S93.104A - Unspecified dislocation of right toe(s), initial encounter Coding Level of Care Code Est Pt Level 4 (23108) Diagnoses Closed dislocation of fifth toe of right foot, initial encounter S93.104A Encounter type: initial encounter Right foot pain M79.671 Closed fracture of phalanx of right fifth toe, initial encounter S92.501A Encounter type: initial encounter CPT Codes Podiatry Dressing - CPT: 91489 Strapping of foot/toe ([id number]) Time Spent (min) 40
--- OUTSIDE RECORDS SUMMARY | 2025-06-17 08:50 | XMS_ITS | Patient Health Record ---
Author Organization [facility] Address [address] [address] Care Team Providers Care Medicare Insurance Specialist Name Role Phone Abdoul SORIA, Yoel Primary Care Provider Malinda Garcia [phone] Reason For Referral No Information Medications Medication SIG (Take, Route, Frequency, Duration) Notes Start Date End Date Status predniSONE 25MG 1 ORAL twice daily; Duration: -3 [facility] [place]2012 Active Omeprazole 20MG 1 ORAL daily; Durati on: -3 [facility] [place] 12/21/2012 Active Lisinopril 40MG 1 ORAL daily; Durati on: -3 [facility] [place] 12/21/2012 Active hydroCHLOROthiazide 12.5MG 1 ORAL daily; Duration: -3 [facility] [place] 12/21/2012 Active Ronda 0.1 MG/24HR 1 patch to skin Transdermal twice weekly; Duration: 365 days 07/04/2015 Active Verapamil HCl 100MG 1 ORAL daily; Durati on: -3 [facility] [place] 12/21/2012 Active Problems Problem Type SNOMED Code ICD Code Onset Dates Problem Status W/U Status Risk Notes Problem Disorder of adrenal gland (66577746) Other specified disorders of adrenal glands (255.8) Active confirmed Major Problem Essential hypertension (05951346) Unspecified essential hypertension (401.9) Active confirmed Major Problem Esophageal reflux (986026266) Esophageal reflux (530.81) Active confirmed Major Problem Postartificial menopausal syndrome (25080160) Symptomatic states associated with artificial menopause (627.4) Active confirmed Plan Of Treatment Pending Test Test Name Order Date Bone Density 03/06/2015 Insurance Providers Payer Name Payer Address Payer Phone Subscriber Number Group Number Insured Name Patient Relationship to Insured Coverage Start Date Coverage End Date [employer] [address] [place] [address] [phone] [id number] KATHARINE PYLE Self - patient is the [...]
--- OUTSIDE RECORDS SUMMARY | 2025-06-17 08:50 | XMS_ITS | Clinical Summary ---
Author Organization [facility] Address [address] [place] [address] Care Team Providers Care Meat Packer Name Role Phone Yoel Schreiber Primary Care Provider [phone] Allergies No known active allergies Medications Lisinopril [...] age to complete this topic Care Teams Meat Packer Relationship Specialty Start Date End Date Yoel Schreiber [address] [place] [phone] PCP - General Internal Medicine 05/02/22
--- OUTSIDE RECORDS SUMMARY | 2025-06-17 08:50 | XMS_ITS | Clinical Summary ---
Author Organization [facility] [place] [address] Care Team Providers Care Media Specialist Name Role Phone Unavailable Primary Care Provider [...] Procedure Name Priority Date/Time Associated Diagnosis Comments [facility] SCREENING DIGITAL Routine 06/07/2024 8:27 AM EDT Encounter for screening mammogram for malignant neoplasm of breast from Last 3 Months or Most Recently Relevant to Health Maintenance Results * [facility] SCREENING DIGITAL (06/07/2024 8:27 AM EDT) Anatomical Region Laterality Modality Mammography 06/03/2024 10:2 1 AM EDT Narrative 06/07/2024 8:27 AM EDT [facility] Diagnostic Imaging Department [address] [place] [address] Patient: MARIAMA PEREZ Tank /Age/Sex: 1980 43 - F Unit#: [id number] Location/Status: SPDIMAM/REG CLI Mnemonic/Ordering Site: DIGMT/[facility] Ordering Physician: YOEL SCHREIBER MD [facility] Screening Digital - 06/05/24908 Report Status:Signed EXAM: [facility] Screening Digital EXAM DATE AND TIME: 06/05/2024 9:10 AM HISTORY: Screening. Patient missed a short-term follow-up exam recommended on 05/27/23 for a small focal asymmetry in the right breast. COMPARISON: 05/27/23, 05/21/23 TECHNIQUE: Bilateral digital breast tomosynthesis was performed in the CC and MLO projections. Computer aided detection with [employer]etah 3D 3.1 was employed. TISSUE DENSITY: b. [...] Mammogram performed at [facility] [place] [address] Dictating Physician: LEANDRA GERBER MD Electronically Signed by: LEANDRA GERBER MD Dic Date/Time: 06/07/24823 Sign date/Time: 06/07/24826 Procedure Note Leandra Gerber MD - 06/29/2024 [facility] Diagnostic Imaging Department [address] [place] [address] Patient: MARIAMA PEREZ Tank /Age/Sex: 1980 - 43 - F Unit#: [id number] Location/Status: SPDIMAM/REG CLI Mnemonic[facility]ician: YOEL SCHREIBER MD [facility] Screening Digital - 06/05/24908 Report Status:Signed EXAM: [facility] Screening Digital EXAM DATE AND TIME: 06/05/2024 9:10 AM HISTORY: Screening. Patient missed a short-term follow-up examrecommended on 05/27/23 for a small focal asymmetry in the right breast. COMPARISON: 05/27/23, 05/21/23 TECHNIQUE: Bilateral digital breast tomosynthesis was performed in the CCand MLO projections. Computer aided detection with DeliveryCheetah 3D 3.1was employed. TISSUE DENSITY: b. There [...] Mammogram performed at [facility] [place] [address] Dictating Physician: LEANDRA GERBER MD Electronically Signed by: LEANDRA GERBER MD Dic Date/Time: 06/07/24823 Sign date/Time: 06/07/24826 us Yoel Schreiber MD IMG BI PROCEDURES Final Result from Last 3 Months or Most Recently Relevant to Health Maintenance
--- OUTSIDE RECORDS SUMMARY | 2025-06-17 08:50 | XMS_ITS | Clinical Summary ---
Author Organization [facility] Address [address] [address] Phone Care Team Providers Care Cordwood Cutter Helper Name Role Phone Unknown, Unknown MD Primary [...] topic Medical Devices Not on file Insurance [facility] [employer] [facility] DIRECT PLANS DIRECT PLANS DIRECT PLANS DIRECT PLANS DIRECT PLANS DIRECT PLANS DIRECT [facility] [employer] [facility] DIRECT [employer] [facility] DIRECT Care Teams Cordwood Cutter Helper Relationship Specialty Start Date End Date Unknown, Unknown, PCP - General 03/02/21 Additional Source Comments The information contained in this document represents components of the legal health record. It is not the complete legal health record.[facility]
== END 2025-06-17 09:03 | disposition home or self-care (01) ==
LOC: HO.HPODS 08:30
PROVIDERS: PCP Internal Medicine; Visit Provider Student in an Organized Health Care Education/Training Program
DX: S93.104A Unspecified dislocation of right toe(s), initial encounter (principal); M79.671 Pain in right foot; S92.501A Displaced unspecified fracture of right lesser toe(s), initial encounter for closed fracture
CPT/HCPCS: 29550

== ENCOUNTER → 2025-06-17 08:29 | Outpatient (BNVA) | payer OTHER, SELFPAY | PROVIDERS: PCP Internal Medicine; Visit Provider Student in an Organized Health Care Education/Training Program | DX: M79.671 Pain in right foot (principal); S92.501A Displaced unspecified fracture of right lesser toe(s), initial encounter for closed fracture; S93.104A Unspecified dislocation of right toe(s), initial encounter | CPT/HCPCS: 29550 ==

== ENCOUNTER 2025-06-28 10:39 | Outpatient (REF) | payer OTHER, SELFPAY ==
--- NOTE | ~2025-06-28 | XR_ITS ---
EXAMINATION: XR FOOT, RIGHT CLINICAL INFORMATION: S93.104A - Unspecified dislocation of right toe(s), initial encounter COMPARISON: Previous x-ray most recent June 13, 2025 TECHNIQUE: AP, lateral, and oblique views of the right foot. FINDINGS: There is a healing fracture of the proximal phalanx of the fifth toe. Alignment is anatomic. No other fracture. Joint spaces are normal. There is soft tissue swelling of the fifth toe. XR/XR foot RT min 3V IMPRESSION: Healing nondisplaced fracture of the right fifth toe. Electronically signed by: Ana Hernandez MD 06/28/2025 10:57 AM EDT
--- OUTSIDE RECORDS SUMMARY | 2025-06-28 13:26 | XMS_ITS | Clinical Summary ---
Author Organization [facility] Address [address] [address] Phone Care Team Providers Care Oxyhydrogen Welder Name Role Phone Unknown, Unknown MD Primary [...] topic Medical Devices Not on file Insurance [facility] [employer] [facility] DIRECT PLANS DIRECT PLANS DIRECT PLANS DIRECT PLANS DIRECT PLANS DIRECT PLANS DIRECT [facility] [employer] [facility] DIRECT [employer] [facility] DIRECT Care Teams Oxyhydrogen Welder Relationship Specialty Start Date End Date Unknown, Unknown, PCP - General 03/02/21 Additional Source Comments The information contained in this document represents components of the legal health record. It is not the complete legal health record.[facility]
--- OUTSIDE RECORDS SUMMARY | 2025-06-28 13:26 | XMS_ITS | Clinical Summary ---
Author Organization [facility] [place] [address] Care Team Providers Care Container Washer Name Role Phone Unavailable Primary Care Provider [...] Procedure Name Priority Date/Time Associated Diagnosis Comments [facility] SCREENING DIGITAL Routine 06/07/2024 8:27 AM EDT Encounter for screening mammogram for malignant neoplasm of breast from Last 3 Months or Most Recently Relevant to Health Maintenance Results * [facility] SCREENING DIGITAL (06/07/2024 8:27 AM EDT) Anatomical Region Laterality Modality Mammography 06/03/2024 10:2 1 AM EDT Narrative 06/07/2024 8:27 AM EDT [facility] Diagnostic Imaging Department [address] [place] [address] Patient: MARIAMA PEREZ Tank /Age/Sex: 1980 43 - F Unit#: [id number] Location/Status: SPDIMAM/REG CLI Mnemonic/Ordering Site: DIGNM/[facility] Ordering Physician: YOEL SCHREIBER MD [facility] Screening Digital - 06/05/24908 Report Status:Signed EXAM: [facility] Screening Digital EXAM DATE AND TIME: 06/05/2024 9:10 AM HISTORY: Screening. Patient missed a short-term follow-up exam recommended on 05/27/23 for a small focal asymmetry in the right breast. COMPARISON: 05/27/23, 05/21/23 TECHNIQUE: Bilateral digital breast tomosynthesis was performed in the CC and MLO projections. Computer aided detection with Jin-Magic 3D 3.1 was employed. TISSUE DENSITY: b. [...] Mammogram performed at [facility] [place] [address] Dictating Physician: LEANDRA GERBER MD Electronically Signed by: LEANDRA GERBER MD Dic Date/Time: 06/07/24823 Sign date/Time: 06/07/24826 Procedure Note Leandra Gerber MD - 06/29/2024 [facility] Diagnostic Imaging Department [address] [place] [address] Patient: MARIAMA PEREZ Tank /Age/Sex: 1980 - 43 - F Unit#: [id number] Location/Status: SPDIMAM/REG CLI [facility] Order[facility] Physician: YOEL SCHREIBER MD [facility] Screening Digital - 06/05/24908 Report Status:Signed EXAM: [facility] Screening Digital EXAM DATE AND TIME: 06/05/2024 9:10 AM HISTORY: Screening. Patient missed a short-term follow-up examrecommended on 05/27/23 for a small focal asymmetry in the right breast. COMPARISON: 05/27/23, 05/21/23 TECHNIQUE: Bilateral digital breast tomosynthesis was performed in the CCand MLO projections. Computer aided detection with Jin-Magic 3D 3.1was employed. TISSUE DENSITY: b. There [...] Mammogram performed at [facility] [place] [address] Dictating Physician: LEANDRA GERBER MD Electronically Signed by: LEANDRA GERBER MD Dic Date/Time: 06/07/24823 Sign date/Time: 06/07/24826 us Yoel Schreiber MD IMG BI PROCEDURES Final Result from Last 3 Months or Most Recently Relevant to Health Maintenance
--- OUTSIDE RECORDS SUMMARY | 2025-06-28 13:26 | XMS_ITS | Patient Health Record ---
Author Organization [facility] Address [address] [address] Care Team Providers Care Enterprise Infrastructure Architect Name Role Phone Abdoul SORIA, Yoel Primary Care Provider Malinda Garcia [phone] Reason For Referral No Information Medications Medication SIG (Take, Route, Frequency, Duration) Notes Start Date End Date Status predniSONE 25MG 1 ORAL twice daily; Duration: -3 [facility] [place]2012 Active Omeprazole 20MG 1 ORAL daily; Durati on: -3 [facility] [place] 12/21/2012 Active Lisinopril 40MG 1 ORAL daily; Durati on: -3 [facility] [place] 12/21/2012 Active hydroCHLOROthiazide 12.5MG 1 ORAL daily; Duration: -3 [facility] [place] 12/21/2012 Active Ronda 0.1 MG/24HR 1 patch to skin Transdermal twice weekly; Duration: 365 days 07/04/2015 Active Verapamil HCl 100MG 1 ORAL daily; Durati on: -3 [facility] [place] 12/21/2012 Active Problems Problem Type SNOMED Code ICD Code Onset Dates Problem Status W/U Status Risk Notes Problem Disorder of adrenal gland (10084942) Other specified disorders of adrenal glands (255.8) Active confirmed Major Problem Essential hypertension (18827547) Unspecified essential hypertension (401.9) Active confirmed Major Problem Esophageal reflux (849520490) Esophageal reflux (530.81) Active confirmed Major Problem 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
--- OUTSIDE RECORDS SUMMARY | 2025-06-28 13:26 | XMS_ITS | Clinical Summary ---
Author Organization [facility] Address [address] [place] [address] Care Team Providers Care Fire Management Officer Name Role Phone Yoel Schreiber Primary Care Provider [phone] Allergies No known active allergies Medications Lisinopril [...] age to complete this topic Care Teams Fire Management Officer Relationship Specialty Start Date End Date Yoel Schreiber [address] [place] [address] PCP - General Internal Medicine 05/02/22
== END 2025-06-28 10:40 | disposition home or self-care (01) ==
LOC: HO.XRAY 10:39
PROVIDERS: PCP Internal Medicine; Visit Provider Student in an Organized Health Care Education/Training Program
DX: S92.504D Nondisplaced unspecified fracture of right lesser toe(s), subsequent encounter for fracture with routine healing (principal)
CPT/HCPCS: 73630

== ENCOUNTER → 2025-06-28 10:43 | Outpatient (BNV) | payer OTHER, SELFPAY | PROVIDERS: PCP Internal Medicine; Visit Provider Radiology Diagnostic Radiology | DX: M79.674 Pain in right toe(s) (principal) | CPT/HCPCS: 73630 ==

== ENCOUNTER 2025-06-30 08:16 | Outpatient (AMB) | payer OTHER, SELFPAY ==
[2025-06-30 08:33] VITALS: BMI 23.7
--- NOTE | 2025-06-30 08:33 | MHC.OFFVIS ---
Vital Signs 06/30/25 08:33 Height 6 ft Weight 175 lb BMI 23.7 Intake Visit Reasons: f/u xrays right 5th toe fx Intake Note: Mariama is a 44 year old female who presents today for a follow up on her right 5th toe fracture. Pt states her toe has been doing well and she has not experienced any pain or discomfort while using the boot. she says the only pain she has experienced is from her blood blister on the lateral aspect of her pinky toe. Allergies No Known Allergies (No Known Allergies*) Allergy (Verified 06/30/25 08:35) Medication List - Last Reconciled 06/30/25 by Tawny Wright DPM alendronate 70 mg PO QWEEK eplerenone 50 mg PO DAILY ergocalciferol (vitamin D2) 1,250 mcg PO QWEEK lisinopril 40 mg PO DAILY omeprazole 20 mg PO DAILY prednisone mg PO sertraline 25 mg PO DAILY HPI Comments Details: The patient is a 44-year-old female presenting for a follow-up of a right 5th toe fracture. The patient's symptoms have significantly improved. The transition to WBAT in the CAMboot without crutches has been going well with no significant pain or instability. The patient denies any worsening to the blister noted to the lateral aspect of the right 5th toe. Patient denies any current pain to the right foot. She denies any new pedal injuries. She denies any other pedal concerns. Patient was accompanied by her mother. [facility] Medical History (Updated 07/02/25 @ 15:07 by Tawny Wright DPM) Closed nondisp fx of proximal phalanx of lesser toe of right foot Right foot pain Dislocation of fifth toe, right, closed Review of Systems Const Details: - Musculoskeletal: Reports right 5th toe fracture without pain. All systems reviewed & are unremarkable except as noted in HPI and below Physical Exam Vital Signs: BMI result Body Mass Index 23.7 Extrem Other: Right lower extremity focused physical exam: Derm: Blood blister noted to the lateral aspect of the foot in the area of the 5th metatarsal head. No purulence, drainage, or bleeding noted. No open lesions, abrasions, or wounds noted. No maceration noted no ecchymosis or discoloration noted. Minimal edema noted to the lateral aspect of the right foot along the area of the 5th toe. No clinical signs of infection. Vascular: DP/PT pulses palpable. Capillary refill time less than 3 seconds. Temperature gradient warm to warm. No varicosities noted. Pedal hair present. Neuro: Protective sensation is grossly intact. MSK: Minimal discomfort on palpation to the 5th toe. Increased range of motion of the 5th toe. Range of motion of the remaining forefoot within normal limits. Range of motion of the hindfoot and ankle within normal limits. No crepitus noted. No fluctuance noted. Minimally antalgic gait noted with the use of a CAMboot. Results Reviewed Results Reviewed: Podiatry read of Right foot x-rays (06/28/2025): Continued healing noted to the proximal phalanx 5th toe spiral fracture with increased consolidation and bone callus formation noted. No new fractures or displacements noted. Right foot x-rays (06/28/2025): FINDINGS: There is a healing fracture of the proximal phalanx of the fifth toe. Alignment is anatomic. No other fracture. Joint spaces are normal. There is soft tissue swelling of the fifth toe. IMPRESSION: Healing nondisplaced fracture of the right fifth toe. Assessment & Plan Assessment & Plan (1) Dislocation of fifth toe, right, closed: Code(s): S93.104A - Unspecified dislocation of right toe(s), initial encounter Category: Medical Qualifiers: Encounter type: initial encounter Qualified Code(s): S93.104A - Unspecified dislocation of right toe(s), initial encounter (2) Right foot pain: Code(s): M79.671 - Pain in right foot Category: Medical (3) Closed nondisp fx of proximal phalanx of lesser toe of right foot: Code(s): S92.514A - Nondisplaced fracture of proximal phalanx of right lesser toe(s), initial encounter for closed fracture Category: Medical Qualifiers: Encounter type: subsequent encounter Fracture healing: with routine healing Qualified Code(s): S92.514D - Nondisplaced fracture of proximal phalanx of right lesser toe(s), subsequent encounter for fracture with routine healing (4) Closed fracture of fifth toe of right foot: Code(s): S92.501A - Displaced unspecified fracture of right lesser toe(s), initial encounter for closed fracture Category: Medical Qualifiers: Encounter type: initial encounter Qualified Code(s): S92.501A - Displaced unspecified fracture of right lesser toe(s), initial encounter for closed fracture Plan Patient was informed and verbally consented to the use of an ambient scribe for clinic note documentation during this visit. I discussed with the patient the healing progress of her right 5th toe fracture, as evidenced by the x-rays showing continued healing. We talked about the importance of starting physical therapy to regain strength and mobility, and I emphasized the need for supportive footwear to prevent further injury. I also advised her to continue to monitor the blood blister for any signs of infection and to keep it covered with a bandaid. We agreed on a follow-up visit in one month to evaluate her progress and adjust her treatment plan as needed. - Provided a PT referral to improve strength and mobility of the right foot. - Transitioned patient to be WBAT in a stiff-soled sneaker. - Advised wearing supportive footwear, avoiding flip-flops, and using sneakers for stability. - Monitor the blood blister for signs of infection, such as pus or increased redness, and keep it covered with a Band-Aid. Applied a bandaid to the area. - Continuation of vitamin D supplementation is recommended to aid in bone healing. RTC in 1 month - will order repeat right foot xrays at next appointment. Orders: Orders PT Evaluation and Treatment 06/30/25 M79.671 - Pain in right foot, S92.514A - Nondisplaced fracture of proximal phalanx of right lesser toe(s), initial encounter for closed fracture, S93.104A - Unspecified dislocation of right toe(s), initial encounter Coding Level of Care Code Est Pt Level 4 (63733) Diagnoses Closed dislocation of fifth toe of right foot, initial encounter S93.104A Encounter type: initial encounter Right foot pain M79.671 Closed nondisplaced fracture of proximal phalanx of lesser toe of right foot with routine healing, subsequent encounter S92.514D Encounter type: subsequent encounter Fracture healing: with routine healing Closed fracture of phalanx of right fifth toe, initial encounter S92.501A Encounter type: initial encounter Time Spent (min) 38
--- OUTSIDE RECORDS SUMMARY | 2025-06-30 08:50 | XMS_ITS | Patient Health Record ---
Author Organization [facility] Address [address] [address] Care Team Providers Care Brazer Electronic Name Role Phone Abdoul SORIA, Yoel Primary Care Provider Malinda Garcia [phone] Reason For Referral No Information Medications Medication SIG (Take, Route, Frequency, Duration) Notes Start Date End Date Status predniSONE 25MG 1 ORAL twice daily; Duration: -3 [facility] [place]- 12/21/2012 Active Omeprazole 20MG 1 ORAL daily; Durati on: -3 [facility] [place]- 12/21/2012 Active Lisinopril 40MG 1 ORAL daily; Durati on: -3 [facility] [place]- 12/21/2012 Active hydroCHLOROthiazide 12.5MG 1 ORAL daily; Duration: -3 [facility] [place]- 12/21/2012 Active Ronda 0.1 MG/24HR 1 patch to skin Transdermal twice weekly; Duration: 365 days 07/04/2015 Active Verapamil HCl 100MG 1 ORAL daily; Durati on: -3 [facility] [place]- 12/21/2012 Active Problems Problem Type SNOMED Code ICD Code Onset Dates Problem Status W/U Status Risk Notes Problem Disorder of adrenal gland (99957282) Other specified disorders of adrenal glands (255.8) Active confirmed Major Problem Essential hypertension (48259493) Unspecified essential hypertension (401.9) Active confirmed Major Problem Esophageal reflux (575065732) Esophageal reflux (530.81) Active confirmed Major Problem Postartificial menopausal syndrome (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
--- OUTSIDE RECORDS SUMMARY | 2025-06-30 08:50 | XMS_ITS | Clinical Summary ---
Author Organization [facility] Address [address] [place] [address] Care Team Providers Care Field Instructor Name Role Phone Yoel Schreiber Primary Care Provider [phone] Allergies No known active allergies Medications Lisinopril [...] age to complete this topic Care Teams Field Instructor Relationship Specialty Start Date End Date Yoel Schreiber [address] [place] [phone] PCP - General Internal Medicine 05/02/22
--- OUTSIDE RECORDS SUMMARY | 2025-06-30 08:50 | XMS_ITS | Clinical Summary ---
Author Organization [facility] [place] [address] Care Team Providers Care Wedding Cake Designer Name Role Phone Unavailable Primary Care Provider [...] Procedure Name Priority Date/Time Associated Diagnosis Comments [facility] SCREENING DIGITAL Routine 06/07/2024 8:27 AM EDT Encounter for screening mammogram for malignant neoplasm of breast from Last 3 Months or Most Recently Relevant to Health Maintenance Results * [facility] SCREENING DIGITAL (06/07/2024 8:27 AM EDT) Anatomical Region Laterality Modality Mammography 06/03/2024 10:2 1 AM EDT Narrative 06/07/2024 8:27 AM EDT [facility] Diagnostic Imaging Department [address] [place] [address] Patient: MARIAMA PEREZ Tank /Age/Sex: 1980 43 - F Unit#: [id number] Location/Status: SPDIMAM/REG CLI Mnemonic/Ordering Site: [facility] Ordering Physician: YOEL SCHREIBER MD [facility] Screening Digital - 06/05/24908 Report Status:Signed EXAM: [facility] Screening Digital EXAM DATE AND TIME: 06/05/2024 9:10 AM HISTORY: Screening. Patient missed a short-term follow-up exam recommended on 05/27/23 for a small focal asymmetry in the right breast. COMPARISON: 05/27/23, 05/21/23 TECHNIQUE: Bilateral digital breast tomosynthesis was performed in the CC and MLO projections. Computer aided detection with [employer] 3D 3.1 was employed. TISSUE DENSITY: b. [...] Mammogram performed at [facility] [place] [address] Dictating Physician: LEANDRA GERBER MD Electronically Signed by: LEANDRA GERBER MD Dic Date/Time: 06/07/24823 Sign date/Time: 06/07/24826 Procedure Note Leandra Gerber MD - 06/29/2024 [facility] Diagnostic Imaging Department [address] [place] [id number] Patient: MARIAMA PEREZ Tank /Age/Sex: 1980 - 43 - F Unit#: [id number] Location/Status: SPDIMAM/REG CLI Mnemonic[facility] Ordering Physician: YOEL SCHREIBER MD [facility] Screening Digital - 06/05/24908 Report Status:Signed EXAM: [facility] Screening Digital EXAM DATE AND TIME: 06/05/2024 9:10 AM HISTORY: Screening. Patient missed a short-term follow-up examrecommended on 05/27/23 for a small focal asymmetry in the right breast. COMPARISON: 05/27/23, 05/21/23 TECHNIQUE: Bilateral digital breast tomosynthesis was performed in the CCand MLO projections. Computer aided detection with [employer] 3D 3.1was employed. TISSUE DENSITY: b. There [...] Mammogram performed at [facility] [place] [address] Dictating Physician: LEANDRA GERBER MD Electronically Signed by: LEANDRA GERBER MD Dic Date/Time: 06/07/24823 Sign date/Time: 06/07/24826 us Yoel Schreiber MD IMG BI PROCEDURES Final Result from Last 3 Months or Most Recently Relevant to Health Maintenance
== END 2025-06-30 08:58 | disposition home or self-care (01) ==
LOC: HO.HPODS 08:17
PROVIDERS: PCP Internal Medicine; Visit Provider Student in an Organized Health Care Education/Training Program
DX: S93.104A Unspecified dislocation of right toe(s), initial encounter (principal); M79.671 Pain in right foot; S92.514D Nondisplaced fracture of proximal phalanx of right lesser toe(s), subsequent encounter for fracture with routine healing; S92.501A Displaced unspecified fracture of right lesser toe(s), initial encounter for closed fracture
CPT/HCPCS: 99214